=== PATIENT | female | born 1990 | race Two or more races ===

== ENCOUNTER 2018-09-07 13:58 | Emergency (ER) | payer MEDICAID, OTHER ==
[~2018-09-07] VITALS: Ht 157.5 cm; Wt 101.2 kg
[~2018-09-07 13:58] MED LIST: CLA10T PO; LEVA15HF4 IH
[2018-09-07 14:07] VITALS: BP 149/99
== END 2018-09-07 15:42 | disposition home or self-care (01) ==
LOC: ER 13:59
DX: M25.571 Pain in right ankle and joints of right foot (principal); Z79.899 Other long term (current) drug therapy
CPT/HCPCS: 73610; 99283

== ENCOUNTER 2018-09-10 18:41 | Emergency (ER) | payer OTHER ==
[~2018-09-10] VITALS: Ht 157.5 cm; Wt 95.0 kg
[2018-09-10] MEDS ORDERED: ACET-3067 PO (20:19)
[2018-09-10 20:31] VITALS: BP 134/84
== END 2018-09-10 20:33 | disposition home or self-care (01) ==
LOC: ER 18:41
DX: S20.219A Contusion of unspecified front wall of thorax, initial encounter (principal); V43.52XA Car driver injured in collision with other type car in traffic accident, initial encounter; Y93.89 Activity, other specified; Y92.410 Unspecified street and highway as the place of occurrence of the external cause; Y99.8 Other external cause status
CPT/HCPCS: 99282; 99283

== ENCOUNTER 2018-11-24 13:04 | Emergency (ER) | payer OTHER ==
[~2018-11-24] VITALS: Ht 157.5 cm; Wt 101.0 kg
[2018-11-24 13:10] VITALS: BP 135/90
[2018-11-24] MEDS ORDERED: acetaminophen 325mg tablet PO ONE (13:45)
[2018-11-24] MEDS ORDERED: TAM75C PO (13:48)
[2018-11-24] MEDS ORDERED: CODE118S4 PO (13:49)
[2018-11-24] MEDS ORDERED: AMOX-580 PO (15:04)
== END 2018-11-24 14:11 | disposition home or self-care (01) ==
LOC: ER 13:04
DX: J01.00 Acute maxillary sinusitis, unspecified (principal); R05 Cough; R50.9 Fever, unspecified; Z79.899 Other long term (current) drug therapy
CPT/HCPCS: 87502; 87503; 93005; 99284

== ENCOUNTER 2019-07-06 18:37 | Emergency (ER) | payer MEDICAID ==
[~2019-07-06] VITALS: Ht 157.5 cm; Wt 105.3 kg
--- NOTE | 2019-07-06 18:57 | NUR ---
Dr. Thompson is with the patient at this time. Labs have been collected. Pt is aware we need a urine specimen. Pt reports significant headache.
[2019-07-06] MEDS ORDERED: ketorolac trometh. 30mg/ml inj. IV ONE (19:00)
[2019-07-06] MEDS ORDERED: normal saline 1000ML IV soln IVB ONE (19:00)
[2019-07-06] MEDS ORDERED: ondansetron/PF 4mg/2ml inj IV ONE (19:00)
[2019-07-06 19:14] LABS: BASOPHILS # (AUTO) 0.1 X10'3 (0-0.2); BASOPHILS % (AUTO) 0.6 % (0-1); EOSINOPHILS # (AUTO) 0.1 X10'3 (0-0.9); EOSINOPHILS % (AUTO) 1.6 % (0-6); HEMATOCRIT 38.4 % (35.0-45.0); HEMOGLOBIN 12.8 g/dl (12.0-16.0); LYMPHOCYTES # (AUTO) 1.4 X10'3 (1.1-4.8); LYMPHOCYTES % (AUTO) 15.3 % (21-51); MEAN CORPUSCULAR HEMOGLOBIN 27.2 PG (27.0-31.0); MEAN CORPUSCULAR HGB CONC 33.3 g/dL (33.0-36.5); MEAN CORPUSCULAR VOLUME 81.7 FL (78-98); MEAN PLATELET VOLUME 7.2 FL (7.4-10.4); MONOCYTES # (AUTO) 0.8 X10'3 (0-0.9); MONOCYTES % (AUTO) 9.2 % (2-12); NEUTROPHILS # (AUTO) 6.7 X10'3 (1.8-7.7); NEUTROPHILS % (AUTO) 73.3 % (42-75); PLATELET COUNT 335 X10'3 (140-440); RED CELL DISTRIBUTION WIDTH 13.5 % (11.5-14.5); WHITE BLOOD COUNT 9.1 X10'3 (4.5-11.0)
[2019-07-06 19:30] LABS: ALANINE AMINOTRANSFERASE 27 U/L (12-78); ALBUMIN 3.8 G/DL (3.4-5.0); ALBUMIN/GLOBULIN RATIO 0.7 (1.1-1.5); ALKALINE PHOSPHATASE 103 IU/L (46-116); ANION GAP 11 (8-16); ASPARTATE AMINO TRANSFERASE 21 U/L (10-37); BILIRUBIN,TOTAL 0.3 MG/DL (0.1-1.0); BLOOD UREA NITROGEN 7 MG/DL (7-18); BUN/CREATININE RATIO 13.2 (6.6-38.0); CALCIUM 9.1 MG/DL (8.5-10.1); CHLORIDE 103 MMOL/L (99-107); CREATININE 0.53 MG/DL (0.40-0.90); GLUCOSE 86 MG/DL (70-104); POTASSIUM 3.7 MMOL/L (3.5-5.1); SODIUM 140 MMOL/L (135-145); TOTAL CARBON DIOXIDE 25.8 MMOL/L (24-32); eGFR > 90 ML/MIN
[2019-07-06 20:14] LABS: CLARITY,URINE CLOUDY (Clear); COLOR,URINE YELLOW (Yellow); GLUCOSE, URINE NEGATIVE (Neg); KETONES,URINE 15 mg/dl (Neg); LEUKOCYTE ESTERASE ,URINE NEGATIVE (Neg); NITRITES, URINE NEGATIVE (Neg); OCCULT BLOOD,URINE MODERATE (Neg); PH,URINE 5.5 (4.8-8.0); PROTEIN,URINE NEGATIVE (Neg); UROBILINOGEN,URINE 0.2 E.U/dL (0.2-1.0)
[2019-07-06 20:15] LABS: UA COLLECTION TYPE CLN CATCH MIDSTREAM
[2019-07-06 20:17] LABS: URINE HCG POSITIVE (NEG)
[2019-07-06 20:24] LABS: BACTERIA,URINE FEW /HPF (Neg); RBC,URINE 0-2 /HPF (0-2); SQUAMOUS EPITHELIAL CELL,UR MANY /LPF (FEW); WBC,URINE 0-4 /HPF (0-4)
[2019-07-06 21:22] VITALS: BP 137/87
== END 2019-07-06 21:11 | disposition home or self-care (01) ==
LOC: ER 18:37
DX: O26.891 Other specified pregnancy related conditions, first trimester (principal); R10.2 Pelvic and perineal pain; R10.31 Right lower quadrant pain; Z3A.01 Less than 8 weeks gestation of pregnancy; Z79.899 Other long term (current) drug therapy
CPT/HCPCS: 36415; 80053; 81001; 81025; 84702; 85025; 96374; 96375; 99283; J1885; J2405; J7030

== ENCOUNTER 2019-07-08 15:53 | Outpatient (CLI) | payer MEDICAID ==
[2019-07-08 17:08] LABS: HIV ANTIBODY 1&2 RAPID NON-REACTIVE (Neg)
[2019-07-10 05:56] LABS: RPR Non Reactive (Non Reactive)
== END 2019-07-08 23:59 | disposition home or self-care (01) ==
LOC: LAB 15:53
PROVIDERS: ATTEND Nurse Practitioner
DX: Z34.01 Encounter for supervision of normal first pregnancy, first trimester (principal); Z3A.08 8 weeks gestation of pregnancy
CPT/HCPCS: 36415; 84702; 86592; 86703

== ENCOUNTER 2019-07-10 10:07 | Outpatient (CLI) | payer MEDICAID | END 2019-07-10 23:59 | disposition home or self-care (01) | LOC: LAB 10:07 | PROVIDERS: ATTEND Nurse Practitioner | DX: Z34.00 Encounter for supervision of normal first pregnancy, unspecified trimester (principal) | CPT/HCPCS: 36415; 84702 ==

== ENCOUNTER 2019-08-27 18:51 | Emergency (ER) | payer MEDICAID ==
[~2019-08-27] VITALS: Ht 157.5 cm; Wt 97.0 kg
[2019-08-27 20:29] LABS: CLARITY,URINE SLIGHTLY CLOUDY (Clear); COLOR,URINE YELLOW (Yellow); GLUCOSE, URINE NEGATIVE (Neg); KETONES,URINE NEGATIVE (Neg); LEUKOCYTE ESTERASE ,URINE NEGATIVE (Neg); NITRITES, URINE NEGATIVE (Neg); OCCULT BLOOD,URINE LARGE (Neg); PH,URINE 5.5 (4.8-8.0); PROTEIN,URINE NEGATIVE (Neg); UROBILINOGEN,URINE 0.2 E.U/dL (0.2-1.0)
[2019-08-27 20:30] LABS: UA COLLECTION TYPE CLN CATCH MIDSTREAM
[2019-08-27 20:38] LABS: BACTERIA,URINE FEW /HPF (Neg); CAL OXALATE CRYSTALS 3+ /HPF (NEGATIVE); MUCUS STRANDS MODERATE /LPF (Neg); RBC,URINE 0-2 /HPF (0-2); SQUAMOUS EPITHELIAL CELL,UR MODERATE /LPF (FEW); WBC,URINE 0-4 /HPF (0-4)
[2019-08-27 20:39] LABS: URINE HCG NEGATIVE (NEG)
[2019-08-27] MEDS ORDERED: normal saline 1000ML IV soln IVB ONE (20:55)
[2019-08-27] MEDS ORDERED: ondansetron/PF 4mg/2ml inj IV ONE (20:55)
[2019-08-27] MEDS ORDERED: ONDA4TAB6 PO (22:50)
[2019-08-27 23:02] VITALS: BP 137/103
== END 2019-08-27 22:50 | disposition home or self-care (01) ==
LOC: ER 18:52
DX: E86.0 Dehydration (principal); A08.4 Viral intestinal infection, unspecified; Z79.899 Other long term (current) drug therapy
CPT/HCPCS: 81001; 81025; 96361; 96374; 99283; J2405; J7030

== ENCOUNTER 2021-07-31 13:03 | Emergency (ER) | payer MEDICAID, OTHER ==
[~2021-07-31] VITALS: Ht 157.5 cm; Wt 86.4 kg
[~2021-07-31 13:03] MED LIST changes: +ONDA4TAB6 PO
[2021-07-31 13:19] VITALS: BP 153/88
[2021-07-31] MEDS ORDERED: CYCL-1 PO (14:37)
[2021-07-31] MEDS ORDERED: IBUP-1984 PO (14:37)
== END 2021-07-31 15:32 | disposition home or self-care (01) ==
LOC: ER 13:05
DX: M25.532 Pain in left wrist (principal); M25.512 Pain in left shoulder; M54.2 Cervicalgia; Z79.899 Other long term (current) drug therapy; V87.7XXA Person injured in collision between other specified motor vehicles (traffic), initial encounter; Y93.89 Activity, other specified; Y92.89 Other specified places as the place of occurrence of the external cause; Y99.8 Other external cause status
CPT/HCPCS: 29125; 73030; 73110; 99284

== ENCOUNTER 2021-10-01 14:37 | Emergency (ER) | payer MEDICAID, OTHER ==
[~2021-10-01] VITALS: Ht 157.5 cm; Wt 88.6 kg
[~2021-10-01 14:37] MED LIST changes: +CYCL-1 PO
[2021-10-01 14:47] VITALS: BP 142/76
== END 2021-10-01 16:06 | disposition home or self-care (01) ==
LOC: ER 15:53
DX: U07.1 COVID-19 (principal); R05.9 Cough, unspecified; Z79.899 Other long term (current) drug therapy
CPT/HCPCS: 71045; 87635; 99284; C9803

== ENCOUNTER 2023-08-12 20:18 | Emergency (ER) | payer SELFPAY ==
[~2023-08-12] VITALS: Ht 157.5 cm; Wt 106.3 kg
[2023-08-12 20:31] VITALS: BP 161/113; PULSE 93; TEMP 98.4; O2SAT 100
[2023-08-12] MEDS ORDERED: ondansetron 4mg rapidly disintigrating tab PO ONE (22:30)
[2023-08-12] MEDS ORDERED: amox tr/potassium clavulanate 875/125mg TAB PO ONE (22:30)
[2023-08-12] MEDS ORDERED: acetaminophen 325mg tablet PO ONE (22:30)
[2023-08-12] MEDS ORDERED: ketorolac trometh inj. 60 MG/2 ML VIAL IM ONE (22:30)
[2023-08-12] MEDS ORDERED: HYDR-3965 PO (22:33)
[2023-08-12] MEDS ORDERED: AMOX-419 PO (22:33)
[2023-08-12] MEDS ORDERED: CIPR7.5D RIGHT EAR (23:11)
[2023-08-12] MEDS ORDERED: ONDA8TAB13 PO (23:11)
[2023-08-12 23:30] VITALS: RESP 16
== END 2023-08-13 00:01 | disposition home or self-care (01) ==
LOC: ER 20:18
DX: H92.01 Otalgia, right ear (principal); Z79.899 Other long term (current) drug therapy
CPT/HCPCS: 96372; 99284; J1885